=== PATIENT | female | born 1995 | race Caucasian/White ===

== ENCOUNTER → 2024-03-27 08:35 | Outpatient (REF) | payer OTHER, SELFPAY | LOC: PNTC 08:35 | PROVIDERS: ATTENDING PHYSICIAN Obstetrics & Gynecology | DX: Z34.92 Encounter for supervision of normal pregnancy, unspecified, second trimester (principal) | CPT/HCPCS: 76805 ==

== ENCOUNTER 2024-07-22 00:40 | Inpatient (IN) | payer OTHER, SELFPAY ==
[2024-07-22] MEDS: PITOCIN 30 UNITS/NSS 500 ML IV (00:35)
[2024-07-22] MEDS: XYLOCAINE-MPF 1% VIAL 30 ML INFIL (00:35)
[2024-07-22 01:07] LABS: % Basophils 0.5 % (0-2); % Eosinophils 0.5 % (0-6); % Immature Granulocytes 0.7 % (0-0.5); % Lymphocytes 30.5 % (20.5-51.1); % Monocytes 8.9 % (1.7-9.3); % Neutrophils 58.9 % (42.2-75.2); Absolute Basophils 0.1 10^3/uL (0-0.2); Absolute Eosinophils 0.1 10^3/uL (0-0.7); Absolute Immature Granulocytes 0.1 10^3/uL (0-0.05); Absolute Lymphocytes 5.1 10^3/uL (1.2-3.4); Absolute Monocytes 1.5 10^3/uL (0.1-0.6); Absolute Neutrophils 9.7 10^3/uL (1.4-6.5); Hematocrit 37.8 % (37.0-47.0); Hemoglobin 13.5 g/dL (12.0-16.0); Mean Corp Hgb Conc. 35.7 g/dL (33.0-37.0); Mean Corpuscular Hgb 32.5 pg (27.0-31.0); Mean Corpuscular Volume 91.1 fL (81.0-99.0); Mean Platelet Volume 10.8 fL (7.4-10.4); Nucleated Red Blood Cells % 0 %; Platelet Count 281 10^3/uL (130-400); Red Blood Cell Count 4.15 10^6/uL (4.20-5.40); Red Cell Dist. Width 11.9 % (11.5-14.5); White Blood Cell Count 16.6 10^3/uL (4.8-10.8)
[2024-07-22 01:28] VITALS: BMI 27.6
[2024-07-22] MEDS: MOTRIN 600 MG PO ×2 (02:15→17:26)
[2024-07-22] MEDS: TYLENOL 650 MG PO (02:16)
[2024-07-22 05:41] LABS: Amphetamines Negative (Negative); Barbiturates Negative (Negative); Benzodiazepines Negative (Negative); Buprenorphine Negative (Negative); Cocaine Negative (Negative); Methadone Negative (Negative); Methamphetamines Negative (Negative); Opiates Negative (Negative); Phencyclidine Negative (Negative)
[2024-07-22 05:42] LABS: Marijuana Positive (Negative); Tricyclic Antidepressants Negative (Negative)
--- NOTE | 2024-07-22 12:38 | CM ---
Met with new mom Vivien at bedside
Mom reports she has named Tutu Jhaveri
Mom reports she lives with father of baby Tutu Jhaveri in a ranch style home at [address] [facility], [place] [address]
Mom acknowledges she has supplies for infant including car seat and crib
Acknowledged she has support from father of baby and family members
Mom plans to breast feed - she will need a breast pump
Peds - undecided at this time
[facility] - [facility]
CM consult - mom with history of drug abuse; + tox screen on admission for marijuana
Discussed with mother. Reports she has not used marijuana recently
Acknowledged drug abuse hx in past - but no longer uses illicit drugs; reports has had a medical marijuana card in the past - currently
Reports has not used smoked marijuana since . Stated she was aware when marijuana should not be used
Mom given information for the WIC program - encouraged to call
CM will order breast pump form [employer] for mom
[facility]
Spoke with Cornelio #[phone]
Report made for + john screen/concerns
Plan - await determination from [facility]. not to be d/c'ed until [facility] complete assessment
[2024-07-23] MEDS: MOTRIN 600 MG PO (00:55)
[2024-07-23 06:21] LABS: Hematocrit 34.7 % (37.0-47.0); Hemoglobin 11.9 g/dL (12.0-16.0)
--- NOTE | 2024-07-23 11:04 | CM ---
Addendum entered by Denise Basilio 07/23/24 14:22:
Spoke with Sterling from [facility]
cleared to be discharged home with mother
[facility] will continue to support family after d/c
Plan - Infant cleared for d/c by [facility]
Original Note:
Received call from Sterling from [facility] [phone]
Referral received - plans to see mom & today
Breast pump ordered thru [employer] - to be shipped today per Nancy, [employer] business process representative
Called mom to update - LM on VM
Plan - [facility] to evaluate for safe discharge of infant - pending determination
[2024-07-24 13:39] LABS: Syphilis/T. pallidum Ab Reflex Negative (Negative)
== END 2024-07-23 16:39 | disposition home or self-care (01) | DRG 807 ==
LOC: LDRP 00:40
PROVIDERS: ADMITTING PHYSICIAN Obstetrics & Gynecology; FAMILY PHYSICIAN Family Medicine
PROC: 10E0XZZ Delivery of Products of Conception, External Approach (ICD-10-PCS; 2024-07-22)
PROC: 0UQMXZZ Repair Vulva, External Approach (ICD-10-PCS; 2024-07-22)
PROC: 0HQ9XZZ Repair Perineum Skin, External Approach (ICD-10-PCS; 2024-07-22)
DX: O99.824 Streptococcus B carrier state complicating childbirth (principal); Z37.0 Single live birth; Z3A.37 37 weeks gestation of pregnancy; O70.0 First degree perineal laceration during delivery
CPT/HCPCS: 80306; 85014; 85018; 85025; 86780; 86850; 86900; 86901